=== PATIENT | female | born 1960 | race Two or more races ===

== ENCOUNTER → 2017-03-29 | Outpatient (CLI) | payer OTHER ==
[2017-02-14 15:00] VITALS: BP 119/80
[~2017-03-29] MED LIST: ACET500T68 PO; CHOL4POW3 PO; CLON0.5T3 PO; FENT1PAT15 TD; GABA-585 PO; HYDR-2679 PO; HYDR-2758 PO; HYDR-965 PO; IBUP200C9 PO; MAGN400T22 PO; MESA1.2T PO; ONDA4TAB7 PO; PANT40TA5 PO; POTA20TA4 PO; PROC25SU21 RC; SUCR1TAB PO
--- NOTE | 2017-03-30 17:31 | KCIC ---
Bilateral digital screening mammograms: Reason for examination: Routine screening. Comparison is made to previous study dated 12/04/2014. The skin and nipples show no abnormalities. No abnormal lymph nodes are seen. The breast parenchyma is predominantly fatty. (Breast density: Category A.) There are small nodular densities consistent with intramammary lymph nodes seen bilaterally. There are no other dominant masses, suspicious calcifications or architectural distortions. Impression: No evidence of malignancy. Recommend routine screening. BI-RADS Category 2: Benign. "Our facility is accredited by the [employer] Mammography [employer]." This patient's information has been entered into a reminder system for the patient to be notified with the results of her examination and a target date for the next mammogram. Electronically signed by: Belinda Gibson MD (03/30/2017 5:28 PM) [id number]
== END | disposition home or self-care (01) ==
LOC: KCIC MAMMO 15:33
PROVIDERS: ATTEND Internal Medicine
DX: Z12.31 Encounter for screening mammogram for malignant neoplasm of breast (principal)
CPT/HCPCS: G0202; 77067